=== PATIENT | female | born 1955 | race Caucasian/White ===

== ENCOUNTER 2017-10-10 08:10 | Day surgery (SDC) | payer OTHER ==
--- NOTE | 2017-10-10 07:13 | PDHPUP ---
History & Physical Update H&P update statement: This history and physical update is based on an assessment of the patient which was completed after admission or registration (within 24 hours), but prior to the surgery/procedure. H&P update: H&P reviewed & patient examined, no change in patient's condition since H&P completed
[2017-10-10] MEDS ORDERED: ceFAZolin 2 GM/SWFI 2 GM/20 ML SYR IVP ONE (08:25)
[2017-10-10] MEDS ORDERED: LIDOCAINE 1% 2 ML INJ ID PRN (08:26)
[2017-10-10] MEDS ORDERED: NS 500 ML IV ONE (08:26)
--- NOTE | 2017-10-10 09:11 | PDANEPAE ---
ANE History of Present Illness 62 yo female with MS (wheelchair bound), DM II now with stage IV CKD for HD access. ANE Past Medical History - Cardiovascular History Hx Hypertension: No Hx Arrhythmias: No - Pulmonary History Hx COPD: No Hx Asthma/Reactive Airway Disease: No Hx Oxygen in Use at Home: No Hx Sleep Apnea: No Sleep Apnea Screening Result - Last Documented: Negative - Endocrine History Hx Diabetes: Yes Hypothyroid: No Hyperthyroid: No Endocrine History Comment: IDDM - Renal History Hx Renal Disorders: Yes Renal History Comment: RENAL FAILURE. PYELONEPHTITIS 01/2017. HX OF STONE/ INFECTION 12/2016. NEUROMUSCULAR DYSFUNCTION OF BLADDER - Neurological & Psychiatric Hx Hx Neurological and Psychiatric Disorders: Yes Neurological / Psychiatric History Comment: memory lapses attributed to MS by pt - GI History GERD: moderate Hx Gastrointestinal Disorders: Yes Gastrointestinal History Comment: REFLUX. CONSTIPATION - Other Health History Other Health History: RT NEPHROSTOMY TUBE SITE. UNDER OBSERVATION FOR DRAINAGE. MULTIPLE SCLEROSIS DX 1993. ANEMIA - Surgical History Prior Surgeries: REMVL KIDNEY STONE/STENT ANE Review of Systems Review of Systems: - Exercise capacity METS (RN): 1 METS - Systems EENMT: Reports: no symptoms Cardiac: Reports: no symptoms Respiratory: Reports: cough (dry cough this AM, no other symptoms) ANE Patient History - Allergies Allergies/Adverse Reactions: No Known Allergies Allergy (Unverified 09/27/17 14:13) - Home Medications Home Medications: ACETAMINOPHEN PRN 09/27/17 [Last Taken 1 Day Ago ~10/09/17] Aspirin DAILY 09/27/17 [Last Taken 1 Day Ago ~10/09/17] Herbals/Supplements -Info Only DAILY 09/27/17 [Last Taken 1 Day Ago ~10/09/17] Lantus Solostar HS 09/27/17 [Last Taken 1 Day Ago ~10/09/17] Miconazole DAILY 09/27/17 [Last Taken 1 Day Ago ~10/09/17] Omeprazole DAILY 09/27/17 [Last Taken 1 Day Ago ~10/09/17] Polyethylene Glycol 3350 PRN 09/27/17 [Last Taken 1 Day Ago ~10/09/17] Sennosides/Docusate Sodium BID 09/27/17 [Last Taken 1 Day Ago ~10/09/17] Sodium Bicarbonate BID 09/27/17 [Last Taken 1 Day Ago ~10/09/17] Triamcinolone 0.1% BID 09/27/17 [Last Taken 10/10/17] Zofran Odt 4 mg (*) PRN 09/27/17 [Last Taken 2 Days Ago ~10/08/17] - NPO status NPO Since - Liquids (Date): 10/09/17 NPO Since - Liquids (Time): 20:00 NPO Since - Solids (Date): 10/09/17 NPO Since - Solids (Time): 20:00 - Anes Hx Anes Hx: no prior problems - Smoking Hx Smoking Status: Unknown if ever smoked Marijuana use: No - Alcohol Use Alcohol Use: None - Family Anes Hx Family Anes Hx: neg - N/A ANE Labs/Vital Signs - Labs Result Diagrams: 10/10/17 09:15 10/10/17 09:15 - Vital Signs Blood Pressure: 145/86 Heart Rate: 93 Respiratory Rate: 16 O2 Sat (%): 91 Height: 165.1 cm Weight: 83.234 kg ANE Physical Exam - Airway Mouth exam: poor dentition - Pulmonary Pulmonary: clear to auscultation - Cardiovascular Cardiovascular: regular rate and rhythym - ASA Status ASA Status: IV ANE Anesthesia Plan Anesthesia Plan: general endotracheal anesthesia
[2017-10-10 09:37] LABS: PLATELET COUNT 345 10^3/uL (150-400)
[2017-10-10] MEDS ORDERED: THROMBIN (BOVINE) 5,000 UNIT VIAL TP ONE (10:05)
[2017-10-10] MEDS ORDERED: THROMBIN (BOVINE) 20,000 UNIT VIAL TP ONE (10:05)
[2017-10-10] MEDS ORDERED: BUPIVACAINE 0.5% 30 ML SDV ONE (10:06)
[2017-10-10] MEDS ORDERED: PAPAVERINE HCL 60 MG/2 ML SDV ONE (10:06)
[2017-10-10] MEDS ORDERED: PROTAMINE SULFATE 50 MG/5 ML VIAL IVP ONE (10:06)
[2017-10-10] MEDS ORDERED: CISATRACURIUM BESYLATE 20 MG/10 ML VIAL IV ONE (10:48)
[2017-10-10] MEDS ORDERED: LIDOCAINE 2% 5 ML SDV ONE (10:48)
[2017-10-10] MEDS ORDERED: fentaNYL 100 MCG/2 ML INJ ONE ×2 (10:49)
[2017-10-10] MEDS ORDERED: PROPOFOL/EMULSION 500 MG/50 ML BOTTLE IV ONE (10:49)
[2017-10-10] MEDS ORDERED: HEPARIN 10,000 UNIT/10 ML MDV (1,000 UNIT/ML) ONE (11:11)
[2017-10-10] MEDS ORDERED: PHENYLEPHRINE HCL 100 MCG/ML SYR ONE ×2 (11:26→12:02)
[2017-10-10] MEDS ORDERED: ONDANSETRON 4 MG/2 ML VIAL ONE (11:57)
[2017-10-10] MEDS ORDERED: NEOSTIGMINE METHYLSULFATE 3 MG/3 ML SYR ONE (12:04)
[2017-10-10] MEDS ORDERED: GLYCOPYRROLATE 0.2 MG/1 ML VIAL ONE (12:04)
[2017-10-10] MEDS ORDERED: ALBUTEROL 3 ML DEYVIAL IH PRN (12:06)
[2017-10-10] MEDS ORDERED: ACETAMINOPHEN 500 MG TAB PO PRN (12:06)
[2017-10-10] MEDS ORDERED: NALOXONE HCL 0.4 MG/ML INJ IVP PRN (12:06)
[2017-10-10] MEDS ORDERED: fentaNYL 100 MCG/2 ML INJ IVP PRN (12:06)
[2017-10-10] MEDS ORDERED: PROMETHAZINE HCL 25 MG/ML INJ IVP PRN (12:06)
--- NOTE | 2017-10-10 12:15 | POSTOPPROG ---
Post Op Note Date of Operation: 10/10/17 Surgeon: Casey Bruner Disability Aide: Thea Vargas Anesthesiologist: Zoya Garcia Anesthesia: GET(General Endotracheal) Pre-op Diagnosis: CRF Post-op Diagnosis: same Procedure: LUE brachiocephalic AVF. Findings: +thrill. Inf/Abcess present in the surg proc area at time of surgery?: No EBL: Minimal Complications: none
--- NOTE | 2017-10-10 12:31 | POSTANESTH ---
Post Anesthetic Evaluation Cardiovascular Status: Normal, Stable Respiratory Status: Normal, Stable Level of Consciousness/Mental Status: Moderately Sleepy Pain Control: Adequate, Prn Tx Ordered Nausea/Vomiting Control: Adequate, Prn Tx Ordered Complications Possibly Related to Anesthesia: None Noted
[2017-10-10 15:05] VITALS: BP 122/60
== END 2017-10-10 14:55 ==
LOC: FSGY 08:10
PROVIDERS: ATTEND Surgery
PROC: 03180ZF Bypass Left Brachial Artery to Lower Arm Vein, Open Approach (ICD-10-PCS; principal; 2017-10-10 09:45)
DX: E11.22 Type 2 diabetes mellitus with diabetic chronic kidney disease (principal); N18.4 Chronic kidney disease, stage 4 (severe); G35 Multiple sclerosis; Z79.4 Long term (current) use of insulin
CPT/HCPCS: J0690; J1644; J2370; J2405; J2440; J2704; J2710; J2720; J3010